=== PATIENT | female | born 1960 | race Caucasian/White ===

== ENCOUNTER 2018-02-25 15:40 | Emergency (ER) | payer OTHER ==
--- NOTE | 2018-02-25 16:09 | EDPHY ---
H & P Stated Complaint: fall yesterday, fluttering feeling in chest ever since Time Seen by Provider: 02/25/18 16:20 HPI/ROS: CHIEF COMPLAINT: Fall yesterday, "fluttery" feeling in chest HISTORY OF PRESENT ILLNESS: The patient is a 57 y/o female arriving for evaluation of a "fluttery" feeling in her chest following a mechanical fall yesterday. She describes tripping on a step and landing on her left knee. She did not have any symptoms preceding the fall. Afterwards she felt "nervy" and anxious because she narrowly missed an art installation during the fall. Along with this she's noticed a faint "fluttery" feeling in her chest. She denies associated dyspnea, lightheadedness, chest pain, or abdominal pain. She continues to have some soreness in her knee, but denies difficulty walking and bearing weight or any instability. No urinary symptoms, recent illness, fever. REVIEW OF SYSTEMS: A ten point review of systems was performed and is negative with the exception of the items mentioned in the HPI. Past medical history: 1. Scoliosis with chronic back pain. Previously on narcotics. 2. Hypertension - lisinopril Past surgical history: 1. Anterior Cervical Discectomy and Fusion for scoliosis 2. Radical hysterectomy Family history: Mother had aneurysm. Father has normal pressure hydrocephalus. Colon cancer. Social history: Lives in [place]. PCP: Dr. Sharp in [place] General Appearance: Alert. Vital signs reviewed. Blood pressure 139/94. Eyes: Pupils equal and round, no conjunctival injection, no discharge. Anicteric. ENT, Mouth: Mucous membranes are moist, no oropharyngeal erythema or edema. Neck: No lymphadenopathy, supple. Respiratory: Lungs are clear to auscultation; no wheezes, rales, or rhonchi. Cardiovascular: Regular rate and rhythm; no murmur, rub, or gallop. Gastrointestinal: Abdomen is soft and nontender, no masses or organomegaly, bowel sounds normal. Skin: Warm and dry, no rashes on exposed skin, normal color. Back: Nontender to palpation over the thoracolumbar spine. No CVAT. Thoracolumbar scar. Extremities: No lower extremity edema, no calf tenderness or swelling. Left anterior knee bruising and swelling without ligamentous instability. Neurological: Alert and oriented. Moving all four extremities easily and equally. Psychiatric: Normal affect. - Personal History Current Tetanus/Diphtheria Vaccine: Yes Current Tetanus Diphtheria and Acellular Pertussis (TDAP): Yes Tetanus Vaccine Date: 2017 - Medical/Surgical History Hx Asthma: No Hx Chronic Respiratory Disease: No Hx Diabetes: No Hx Cardiac Disease: Yes Hx Renal Disease: No Hx Cirrhosis: No Hx Alcoholism: No Hx HIV/AIDS: No Hx Splenectomy or Spleen Trauma: No Other PMH: HTN, major depression, ACDF surgery, hysterectomy, scoliosis, SHAINA - Social History Smoking Status: Never smoked Constitutional: Initial Vital Signs Temperature (C) 36.9 C 02/25/18 15:49 Heart Rate 84 02/25/18 15:49 Respiratory Rate 20 02/25/18 15:49 Blood Pressure 139/94 H 02/25/18 15:49 O2 Sat (%) 94 02/25/18 15:49 O2 Delivery Mode Room Air Allergies/Adverse Reactions: No Known Allergies Allergy (Unverified 02/25/18 15:48) Home Medications: Medication Instructions Recorded ESTRADIOL ACETATE 02/25/18 Lisinopril 02/25/18 Viibryd 02/25/18 Wellbutrin 150mg SR (*) 02/25/18 Medical Decision Making - Diagnostics EKG Interpretation: 12 lead EKG is interpreted in Trace master View by emergency department physician. ED Course/Re-evaluation: This is a 57 y/o female with no known cardiac history who presents with a faint "fluttery" sensation in her chest after a mechanical fall last night. She has bruising of her left knee, but otherwise completely normal exam. Low suspicion for cardiac etiology. Plan for IV, labs, EKG. CBC and chemistries are normal. No electrolyte abnormality. Her HEART score is 0 and I do not suspect an acute coronary syndrome based upon the history that she provides. Her Wells score for PE is also 0 and I do not suspect pulmonary embolus. I have not seen evidence of a tachy arrhythmia while in the emergency department. The 12 lead EKG was interpreted by myself. Sinus mechanism rate 75. See hard copy and/or "tracemaster" electronic copy for interpretation. Work up here is negative. I am not recommending additional evaluation at this point in time. She was reassured. Reevaluated patient and discussed findings. She will be discharged home with standard follow up instructions and return precautions. She is comfortable with this plan. Differential Diagnosis: I considered a differential diagnosis that includes but is not limited to tachy arrhythmia, PVCs or PACs, electrolyte abnormality, PE, ACS, GERD, and anxiety. - Data Points Laboratory Results: Laboratory Results 02/25/18 16:25 02/25/18 16:25 Departure - Departure Disposition: Home, Routine, Self-Care Clinical Impression: Contusion of knee, left Qualifiers: Encounter type: initial encounter Qualified Code(s): S80.02XA - Contusion of left knee, initial encounter Condition: Good Instructions: Contusion in Adults (ED) Additional Instructions: Adult Pain & Fever Control: We recommend Acetaminophen (Tylenol) and Ibuprofen (Motrin,Advil) for pain and fever control. When fever is high or pain severe, both drugs can be used at the same time, but at different intervals. Please note the time differences. Your dose is: Acetaminophen 650mg every 4 to 6 hours Ibuprofen 400mg every 8 hours with food OR Note: do not take Acetaminophen with Hydrocodone (Vicodin, Lortab) or Oycodone (Percocet). These medications also contain Acetaminophen. No more than 3000mg of Acetaminophen should be taken in 24 hours (for an adult). I have not found any abnormalities with your heart. You have had a normal heart rate while you have been in the emergency department. He continued to feel as if you're heart is fluttering you should follow up with the test analyst. I am referring you to a primary care physician, Dr. Swain, and also to a test analyst. Referrals: DAHLIA SHARP [Other] - As per Instructions Cole Swain MD [Medical Doctor] - As per Instructions Yimi Christiansen MD [Medical Doctor] - As per Instructions Report Scribed for: Chapis Duncan Report Scribed by: Cathy Mullins Date of Report: 02/25/18 Time of Report: 16:23 Physician Review and Approval Statement: 02/25/18 16:08 Portions of this note were transcribed by the pesticide use medical coordinator. I, Dr. Chapis Duncan, personally performed the history, physical exam, and medical decision- making; and confirmed the accuracy of the information in the transcribed note.
[2018-02-25 16:34] LABS: PLATELET COUNT 218 10^3/uL (150-400)
--- NOTE | 2018-02-25 16:38 | CPEKG ---
Heart Rate: 75 RR Interval: 800 P-R Interval: 184 QRSD Interval: 92 QT Interval: 396 QTC Interval: 443 P [place]: 51 QRS [place]: -43 T Wave [place]: 18 EKG Severity - OTHERWISE NORMAL ECG - EKG Impression: SINUS RHYTHM EKG Impression: LEFT AXIS DEVIATION Electronically Signed By: Azeb Manley 27-Feb-2018 17:02:42
[2018-02-25 18:29] VITALS: BP 141/87
== END 2018-02-25 18:29 | disposition home or self-care (01) ==
DX: S80.02XA Contusion of left knee, initial encounter (principal); I10 Essential (primary) hypertension; W01.0XXA Fall on same level from slipping, tripping and stumbling without subsequent striking against object, initial encounter

== ENCOUNTER → 2019-04-25 | Outpatient (CLI) | payer OTHER | LOC: FIMAGING 13:53 ==